=== PATIENT | female | born 1955 | race Caucasian/White ===

== ENCOUNTER 2018-09-02 01:40 | Emergency (ER) | payer OTHER ==
[2018-09-02] MEDS ORDERED: NS 500 ML IV ONE (02:26)
[2018-09-02 02:33] LABS: PLATELET COUNT 284 10^3/uL (150-400)
--- NOTE | 2018-09-02 02:41 | EDPHY ---
H & P Stated Complaint: fever Time Seen by Provider: 09/02/18 01:57 HPI/ROS: HPI The patient presents with fever tonight of 101.4 F, brought in by ambulance from [facility]. The patient reports that she has felt shaking chills and felt very hot throughout the course of the evening tonight. She is status post left hip arthroplasty performed August 19 at [facility]. This was complicated by alcohol withdrawal symptoms. She was discharged on August 30 to [facility]. REVIEW OF SYSTEMS 10 systems were reviewed and negative with the exception of the elements mentioned in the history of present illness. PMHx: Left hip fracture status post ORIF performed August 19, complicated by acute adrenal crisis, COPD, chronic alcohol abuse with history of delirium tremens during most recent hospitalization, hypertension, alcoholic cirrhosis, spinal stenosis, pulmonary hypertension, peripheral vascular disease, anemia Soc Hx: Heavy alcohol use, heavy smoker, here with her daughter PHYSICAL General Appearance: Alert, no distress Eyes: Pupils equal and round no pallor or injection ENT, Mouth: Mucous membranes moist Respiratory: There are no retractions, lungs are clear to auscultation Cardiovascular: Regular rate and rhythm Gastrointestinal: Abdomen is soft and non-tender, no masses, bowel sounds normal Neurological: A&O, moves all extremities Skin: Left hip with multiple surgical incisions with lateral mid thigh with pitting edema, erythema, tenderness to palpation, there is an open track draining clear yellow fluid Musculoskeletal: Neck is supple non tender Extremities: symmetrical, full range of motion Psychiatric: Patient is oriented X 3, there is no agitation Source: Patient, Family, correction records, Old records Constitutional: Initial Vital Signs Temperature (C) 37.0 C 09/02/18 01:35 Heart Rate 80 09/02/18 01:35 Respiratory Rate 18 09/02/18 01:35 Blood Pressure 98/56 L 09/02/18 01:35 O2 Sat (%) 96 09/02/18 01:35 O2 Delivery Mode Nasal Cannula O2 (L/minute) 2 Allergies/Adverse Reactions: alendronate sodium [From Fosamax] Allergy (Verified 09/02/18 02:41) codeine Allergy (Verified 09/02/18 02:41) Medical Decision Making - Diagnostics Imaging Results: Chest x-ray single view demonstrates possible right-sided lower lung field scarring, mild cardiomegaly, no old for comparison, interpreted by me, radiology interpretation is pending. X-ray left hip two views shows hardware in place with no obvious displacement, interpreted by me, radiology interpretation is pending. Differential Diagnosis: This is a 63-year-old female with multiple medical problems brought in by ambulance from [facility] for 1 day of fever as high as 101.4 F in association with increased left hip pain. The patient has been at this nursing facility for the last 2 days after a 13 day hospitalization at outside hospital. There, she was treated for inter trochanteric left femur fracture status post ORIF performed on August 19. Hospitalization was complicated by acute adrenal crisis, acute hypoxic respiratory failure requiring intubation, alcohol withdrawal. She was doing well until yesterday. On exam here, vital signs are relatively normal with slightly low blood pressure in 90s over 60s. Her left lateral thigh is erythematous with pitting edema which could be source of infection. In the emergency department, patient given IV fluids, morphine for pain. Labs checked and do reveal leukocytosis of 23,000, unclear how much of this is due to hydrocortisone. She continues to be anemic. As her liver tests are elevated and she does have hyperbilirubinemia, however I see this listed as a past medical problem. Chest x-ray demonstrates no pneumonia, UA is unremarkable. I suspect her fever is related to postoperative wound infection. I have treated her with ceftriaxone and vancomycin. I spoke with Dr. Del Rosario the hospitalist on-call for [facility]. She accepts transfer of this patient for admission to the hospital for continuity of care given that the patient's operation was performed there about 2 weeks ago and patient was discharged 2 days ago after somewhat complicated postoperative course. I have discussed this with the patient and her daughter at the bedside and they are in agreement with this plan. - Data Points Laboratory Results: Laboratory Results 09/02/18 02:15 09/02/18 02:15 09/02/18 09/02/18 09/02/18 04:15 03:27 02:15 WBC RBC Hgb Hct MCV MCH MCHC RDW Plt Count MPV Neut % (Auto) Lymph % (Auto) Sharp % (Auto) Eos % (Auto) Baso % (Auto) Nucleat RBC Rel Count Absolute Neuts (auto) Absolute Lymphs (auto) Absolute Monos (auto) Absolute Eos (auto) Absolute Basos (auto) Absolute Nucleated RBC Immature Gran % Seg Neutrophils % Band Neutrophils % Lymphocytes % Monocytes % Eosinophils % Basophils % Metamyelocytes % Myelocytes % Promyelocytes % Blast Cells % Immature Gran # Absolute Seg Neuts Absolute Band Neuts Absolute Lymphocytes Absolute Monocytes Absolute Eosinophils Absolute Basophils Absolute Metamyelocyte Absolute Myelocytes Absolute Promyelocytes Absolute Plasma Cells Nucleated RBCs Absolute Blast Cells Plasma Cells % Toxic Granulation Toxic Vacuolation Dohle Bodies Platelet Estimate Polychromasia Target Cells Tear Drop Cells Oval Macrocytes Good-[place] Bodies Smear Review By VBG Lactic Acid 1.2 mmol/L mmol/L (0.7-2.1) Sodium Potassium Chloride Carbon Dioxide Anion Gap BUN Creatinine Estimated GFR Glucose Calcium Total Bilirubin Conjugated Bilirubin Unconjugated Bilirubin AST ALT Alkaline Phosphatase Total Protein Albumin Lipase 235 IU/L IU/L (23-300) Urine Color OLIVIA Urine Appearance MODERATELY TURBID Urine pH 5.0 (5.0-7.5) Ur Specific [place] 1.023 (1.002-1.030) Urine Protein NEGATIVE (NEGATIVE) Urine Ketones NEGATIVE (NEGATIVE) Urine Blood NEGATIVE (NEGATIVE) Urine Nitrate NEGATIVE (NEGATIVE) Urine Bilirubin NEGATIVE (NEGATIVE) Urine Urobilinogen 4.0 EU H EU (0.2-1.0) Ur Leukocyte Esterase NEGATIVE (NEGATIVE) Urine Glucose NEGATIVE (NEGATIVE) 09/02/18 09/02/18 02:15 02:15 WBC 23.34 10^3/uL H 10^3/uL (3.80-9.50) RBC 2.68 10^6/uL L 10^6/uL (4.18-5.33) Hgb 9.1 g/dL L g/dL (12.6-16.3) Hct 28.3 % L % (38.0-47.0) MCV 105.6 fL H fL (81.5-99.8) MCH 34.0 pg pg (27.9-34.1) MCHC 32.2 g/dL L g/dL (32.4-36.7) RDW 19.4 % H % (11.5-15.2) Plt Count 284 10^3/uL 10^3/uL (150-400) MPV 12.3 fL H fL (8.7-11.7) Neut % (Auto) Not Reported Lymph % (Auto) Not Reported Sharp % (Auto) Not Reported Eos % (Auto) Not Reported Baso % (Auto) Not Reported Nucleat RBC Rel Count Not Reported Absolute Neuts (auto) Not Reported Absolute Lymphs (auto) Not Reported Absolute Monos (auto) Not Reported Absolute Eos (auto) Not Reported Absolute Basos (auto) Not Reported Absolute Nucleated RBC Not Reported Immature Gran % Not Reported Seg Neutrophils % 98.0 % % Band Neutrophils % 0.0 % % Lymphocytes % 2.0 % % Monocytes % 0.0 % % Eosinophils % 0.0 % % Basophils % 0.0 % % Metamyelocytes % 0.0 % % Myelocytes % 0.0 % % Promyelocytes % 0.0 % % Blast Cells % 0.0 % % Immature Gran # Not Reported Absolute Seg Neuts 22.87 10^3/uL H 10^3/uL (1.70-6.50) Absolute Band Neuts 0.00 10^3/uL 10^3/uL (0.00-0.70) Absolute Lymphocytes 0.47 10^3/uL L 10^3/uL (1.00-3.00) Absolute Monocytes 0.00 10^3/uL L 10^3/uL (0.30-0.80) Absolute Eosinophils 0.00 10^3/uL L 10^3/uL (0.03-0.40) Absolute Basophils 0.00 10^3/uL L 10^3/uL (0.02-0.10) Absolute Metamyelocyte 0.00 10^3/mL 10^3/mL (0.00-0.00) Absolute Myelocytes 0.00 10^3/mL 10^3/mL (0.00-0.00) Absolute Promyelocytes 0.00 10^3/uL 10^3/uL (0.00-0.00) Absolute Plasma Cells 0.00 10^3/uL 10^3/uL (0.00-0.00) Nucleated RBCs 0 /100 WBC /100 WBC (0-0) Absolute Blast Cells 0.00 10^3/uL 10^3/uL (0.00-0.00) Plasma Cells % 0.0 % % Toxic Granulation PRESENT H Toxic Vacuolation PRESENT H Dohle Bodies PRESENT H Platelet Estimate ADEQUATE (ADEQ) Polychromasia 1+ H Target Cells 1+ H Tear Drop Cells 1+ H Oval Macrocytes 2+ H [place] Bodies 3+ H Smear Review By Pending VBG Lactic Acid Sodium 140 mEq/L mEq/L (135-145) Potassium 4.0 mEq/L mEq/L (3.3-5.0) Chloride 109 mEq/L mEq/L (97-110) Carbon Dioxide 26 mEq/l mEq/l (22-31) Anion Gap 5 mEq/L L mEq/L (6-14) BUN 19 mg/dL mg/dL (7-23) Creatinine 1.1 mg/dL H mg/dL (0.6-1.0) Estimated GFR 50 Glucose 86 mg/dL mg/dL (70-100) Calcium 8.0 mg/dL L mg/dL (8.5-10.4) Total Bilirubin 2.4 mg/dL H mg/dL (0.1-1.4) Conjugated Bilirubin 1.7 mg/dL H mg/dL (0.0-0.5) Unconjugated Bilirubin 0.7 mg/dL mg/dL (0.0-1.1) AST 91 IU/L H IU/L (14-46) ALT 57 IU/L H IU/L (9-52) Alkaline Phosphatase 354 IU/L H IU/L (38-126) Total Protein 4.9 g/dL L g/dL (6.3-8.2) Albumin 2.3 g/dL L g/dL (3.5-5.0) Lipase Urine Color Urine Appearance Urine pH Ur Specific [place] Urine Protein Urine Ketones Urine Blood Urine Nitrate Urine Bilirubin Urine Urobilinogen Ur Leukocyte Esterase Urine Glucose Medications Given: Discontinued Medications Sodium Chloride (Ns) 500 mls @ 1,000 mls/hr IV EDNOW ONE PRN Reason: Protocol Stop: 09/02/18 02:55 Last Admin: 09/02/18 02:34 Dose: 500 mls Ceftriaxone Sodium/Dextrose (Rocephin 1 Gm (Premix)) 50 mls @ 100 mls/hr IV EDNOW ONE PRN Reason: Protocol Stop: 09/02/18 05:24 Last Admin: 09/02/18 05:10 Dose: 50 mls Morphine Sulfate (Morphine) 4 mg IVP EDNOW ONE Stop: 09/02/18 02:27 Last Admin: 09/02/18 02:35 Dose: 4 mg Departure - Departure Disposition: Acute Care Hospital Not [facility] Clinical Impression: Postoperative wound infection Fever Qualifiers: Fever type: unspecified Qualified Code(s): R50.9 - Fever, unspecified COPD (chronic obstructive pulmonary disease) Qualifiers: COPD type: unspecified COPD Qualified Code(s): J44.9 - Chronic obstructive pulmonary disease, unspecified Leukocytosis Qualifiers: Leukocytosis type: unspecified Qualified Code(s): D72.829 - Elevated white blood cell count, unspecified Condition: Fair Referrals: NONE *PRIMARY CARE P,. [Primary Care Provider] - As per Instructions
[2018-09-02] MEDS ORDERED: VANCOMYCIN HCL/NORMAL SALINE 250 ML IV ONE (04:56)
[2018-09-02 07:01] VITALS: BP 97/60
== END 2018-09-02 07:10 | disposition short-term general hospital (02) ==
DX: T81.40XA Infection following a procedure, unspecified, initial encounter (principal); R50.9 Fever, unspecified; S72.142A Displaced intertrochanteric fracture of left femur, initial encounter for closed fracture; E86.9 Volume depletion, unspecified; J44.9 Chronic obstructive pulmonary disease, unspecified; I10 Essential (primary) hypertension; K70.30 Alcoholic cirrhosis of liver without ascites; I27.20 Pulmonary hypertension, unspecified; F10.20 Alcohol dependence, uncomplicated; F17.210 Nicotine dependence, cigarettes, uncomplicated; Z98.890 Other specified postprocedural states
CPT/HCPCS: 71045; 73502; 96361; 96365; 96367; 96375; 99285; J0696; J2270; J3370